=== PATIENT | male | born 1970 | race Caucasian/White ===

== ENCOUNTER 2022-02-26 05:55 | Emergency (ER) | payer OTHER, SELFPAY ==
[2022-02-26 06:06] VITALS: BP 146/106; PULSE 78; RESP 16; TEMP 36.7; O2SAT 96; BMI 33.1
--- NOTE | 2022-02-26 06:09 | W.ED.EXTPRO ---
HPI - Extremity Problem General: Chief complaint: Extremity Problem,Nontraumatic Stated complaint: Rt Arm Pain Time Seen by Provider: 02/26/22 06:01 Source: patient Mode of arrival: ambulatory Limitations: no limitations History of Present Illness: 51-year-old male presents emergency room complaining of pain in the forearm along the dorsal surface. 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 More activity is the worse it hurts it emanates from the lateral epicondyle distally. Does not involve the hand or fingers. No injury. This been going on for several months. MD Complaint: extremity pain Onset (ago): month(s) Pain Consistency: intermittent Location: right, upper extremity and elbow (Lateral) Quality: aching Radiation: distal Relieving factors: nothing Exacerbating factors: range of motion and palpation Associated symptoms: Deny arthralgias, chest pain, fever(s), myalgias, rash or short of breath Review of Systems Const: Denies: fever(s) Card: Denies: chest pain Resp: Denies: dyspnea GI: Denies: abdominal pain, nausea, vomiting or constipation Skin/Breast: Denies: rash PFS ED PFSH: Medical History (Updated 02/26/22 @ 06:21 by Jj Prieto DO) Brain aneurysm Surgical History (Updated 02/26/22 @ 06:22 by Jj Prieto DO) H/O craniotomy Physical Exam Const: COMMON NORMALS: no acute distress GENERAL APPEARANCE: cooperative and comfortable ORIENTATION/CONSCIOUSNESS: Yes awake, Yes oriented to person, Yes oriented to place and Yes oriented to time HENMT: COMMON NORMALS: normocephalic and atraumatic HEAD & SCALP: normocephalic and atraumatic Resp: COMMON NORMALS: normal respiratory effort, No retractions and No use of accessory muscles Extremity: COMMON NORMALS: normal to inspection, capillary refill normal, no clubbing, cyanosis or edema, no calf tenderness and no pedal edema OTHER: Point tenderness of the right lateral epicondyle reproduces worst of his pain. Neurovascularly the right upper extremity is intact. Sensation normal to testing pulses equal bilaterally no deformity. There is a scar along note volar surface laterally along the length of the radius for about 6 to 8 inches from previous vein harvesting for repair of his brain aneurysm. Neuro: SENSORIUM/ORIENTATION: Yes oriented to person, Yes oriented to place and Yes oriented to time Skin: COMMON NORMALS: no rashes or lesions noted GENERAL SKIN EXAM: no rashes or lesions noted Course Vital Signs: Vital signs: Vital Signs Temperature 98.1 F 02/26/22 06:06 Pulse Rate 78 02/26/22 06:06 Respiratory Rate 16 02/26/22 06:06 Blood Pressure 146/106 02/26/22 06:06 Pulse Oximetry 96 02/26/22 06:06 MDM - Extremity (Nontraumatic) Medical Decision Making Exam and history consistent with lateral epicondylitis discussed with patient use forearm band at the thickest part of the forearm to change angle tension across the muscle start anti-inflammatories. Patient was Toradol as an allergy. It causes rapid heart rate and diarrhea but he is been able to take ibuprofen only without any difficulty can use diclofenac as needed. Also discussed with him activities that will exacerbate. He should use deformans while working if persists can follow-up with his primary care doctor for consideration of steroid injection at the lateral epicondyle or referral for physical therapy. Discharge Plan Discharge Patient Disposition: Home Clinical Impression: Epicondylitis, lateral, right Condition: Stable Prescriptions: New diclofenac sodium 75 mg tablet,delayed release (DR/EC) 75 mg PO Q12H PRN (Reason: pain) Qty: 20 0RF Discharge Orders: Discharge ED (Routine); Ordered 02/26/22 Ordered By: Jj Prieto Discharge Diet: Usual diet Discharge Activity: Limit activity as instructed Patient Instructions: Opioid Safety, Lateral Epicondylitis Activity Restrictions/Additional Instructions: Use a forearm band (tennis elbow band) while awake. May take off when you are relaxing or resting. Use anti-inflammatories as needed. If this persist she can follow-up with your primary care doctor or orthopedics to consider other interventions including physical therapy or localized steroid injection. Coding Level of Care Code ED Inspector [employer] [place] for [facility]
[2022-02-26 06:27] VITALS: RESP 16
== END 2022-02-26 06:27 | disposition home or self-care (01) ==
PROVIDERS: Emergency Provider Family Medicine
DX: M77.11 Lateral epicondylitis, right elbow (principal)
CPT/HCPCS: 99281